=== PATIENT | female | born 1965 | race American Indian/Alaskan Native ===

== ENCOUNTER 2017-09-02 06:58 | Outpatient (CLI) | payer BC ==
[2017-09-02] MEDS ORDERED: LEXISCAN IV ONE ×2 (08:14→08:30)
[2017-09-02 10:41] VITALS: BP 140/69
--- NOTE | 2017-09-02 13:24 | Treadmill Report ---
ORDERING PHYSICIAN: Orlando De Jesus MD INDICATION: Shortness of breath. FINDINGS: 1. There is evidence of bilateral lung uptake noted on the plantar imaging suggesting elevated left-sided filling pressure. 2. There is no scintigraphic evidence of myocardial ischemia. There is evidence of a fixed anterior and mid anteroseptal wall defect, likely due to the adjacent lung uptake, breast attenuation. 3. Gated imaging reveals normal wall motion with an ejection fraction measured at 55%. CONCLUSION: 1. This is an abnormal perfusion scan. 2. Evidence of bilateral lung uptake consistent with elevated left-sided filling pressures. There is evidence of bilateral lung uptake noted on the planar images suggesting increased left-sided filling pressures. 3. No scintigraphic evidence of myocardial ischemia. 4. Fixed anterior and anteroseptal wall defect, nonspecific and likely due to overlying breast attenuation as well as lung uptake. 5. Normal wall motion and wall thickening with an ejection fraction measured at 55%. 6. Clinical correlation is recommended. JOB# [id number] THIERRY/WILLIS
== END 2017-09-02 06:59 | disposition home or self-care (01) ==
LOC: CATHLABREC 06:58 → ECHO 06:58 → EDSTATUS 07:30
PROVIDERS: ATTEND Internal Medicine
DX: I07.1 Rheumatic tricuspid insufficiency (principal); I31.3 Pericardial effusion (noninflammatory); I27.20 Pulmonary hypertension, unspecified; J90 Pleural effusion, not elsewhere classified
CPT/HCPCS: 78452; 93017; 93306; A9502; J2785

== ENCOUNTER 2017-09-09 14:01 | Outpatient (CLI) | payer BC ==
[2017-09-09 15:07] LABS: Blood Urea Nitrogen 8 mg/dL (7-17)
--- NOTE | 2017-09-09 15:34 | Cat Scan Report ---
CTA CHEST: HISTORY: Shortness of breath. COMPARISON: none. TECHNIQUE: Helical CT in 1.25mm intervals following IV contrast. Pulmonary embolus protocol. Sagittal and coronal reformatted images. Rotational MIP images. FINDINGS: Contrast bolus is satisfactory. No pulmonary embolus is identified. Thyroid gland: Normal. Tracheobronchial tree: Normal. Esophagus: Normal. Heart: Mild cardiomegaly. Pericardium: Small pericardial effusion. Mediastinum: There are a few scattered borderline lymph nodes in the AP window measuring up to 1.3 cm. Lung House: No parenchymal lung disease is identified. No nodule or infiltrate. Pleural Spaces: Small right pleural effusion and trace left pleural effusion are identified. No pneumothorax. Musculoskeletal: Mild thoracic spondylosis. No fracture or suspicious bony lesion is appreciated. IMPRESSION: No evidence for pulmonary embolus. Mild CHF.
== END 2017-09-09 14:02 | disposition home or self-care (01) ==
LOC: CT 14:01
PROVIDERS: ATTEND Specialist
DX: I11.0 Hypertensive heart disease with heart failure (principal); I50.9 Heart failure, unspecified; I31.3 Pericardial effusion (noninflammatory); J90 Pleural effusion, not elsewhere classified; M47.894 Other spondylosis, thoracic region; E11.9 Type 2 diabetes mellitus without complications
CPT/HCPCS: 36415; 71275; 82565; 84520; Q9967